=== PATIENT | male | born 1945 ===

== ENCOUNTER 2022-04-03 12:14 | Day surgery (SDC) | payer BC, OTHER ==
[2022-03-29 11:18] LABS: SARS-CoV-2 Antigen Rapid Res Negative (Negative)
[2022-04-03] MEDS ORDERED: CYCLOPENTOLATE 1% OPTH 2 ML ONE (12:42)
[2022-04-03] MEDS ORDERED: LIDOCAINE HCL/PF 3.5% OPTH GEL ONE (12:42)
[2022-04-03] MEDS ORDERED: NA CHLORIDE 0.9% 500 ML ONE (12:42)
[2022-04-03] MEDS ORDERED: PHENYLEPHRINE 10% OPTH 5ML OPTH ONE (13:07)
[2022-04-03] MEDS ORDERED: MIDAZOLAM HCL 2 MG/2 ML INJ ONE (13:56)
[2022-04-03] MEDS ORDERED: FENTANYL CITR 100 MCG/2 ML ONE (13:56)
[2022-04-03] MEDS ORDERED: BSS OPTHALMIC SOL 15 ML OPTH ONE (14:22)
[2022-04-03] MEDS ORDERED: TETRACAINE HCL 0.5% 4ML OPTH ONE (14:22)
[2022-04-03] MEDS ORDERED: BALANCED SALT IRRIG PLAIN 500 ML IRR ONE (14:22)
[2022-04-03] MEDS ORDERED: EPINEPHRINE/PF 1 MG/ML AMP ONE (14:22)
[2022-04-03] MEDS ORDERED: MOXIFLOXACIN HCL 0.5% 3ML OPTH OPTH ONE (14:26)
[2022-04-03] MEDS ORDERED: LIDOCAINE 1% MPF 2 ML AMPULE ONE (14:39)
[2022-04-03] MEDS ORDERED: TRYPAN BLUE 0.5 ML SYR OPTH ONE (14:54)
[2022-04-03] MEDS ORDERED: LIDOCAINE HCL/PF 3.5% OPTH GEL OPTH ONE (14:57)
[2022-04-03] MEDS ORDERED: POVIDONE-IODINE 5% EYE DROPS ONE (14:58)
[2022-04-03] MEDS ORDERED: TIMOLOL MALEATE 0.5% OPTH 5 ML BTL LEFT EYE ONE (16:26)
[2022-04-03 16:54] VITALS: BP 148/79; TEMP 98.1; O2SAT 99
--- NOTE | 2022-04-04 03:57 | OP ---
Date of Procedure: 04/03/2022 Surgeon: Caty Mack MD Anesthesiologist: 1. May Waters CRNA. 2. Chester Enriquez MD. Preoperative Diagnoses: Mature cataract, left eye, and Pseudoexfoliation, left eye. Operation Performed: Phacoemulsification with intraocular lens implant, complex with the use of tryp an blue. Anesthesia: Per cataract surgery. Complications: None. Description Of The Procedure: The patient was prepped with Betadine in day surgery. A drape was brennan andrea over the left eye. A lid speculum was placed in the left eye. A conjunctival incision was made in the inferior nasal quadrant with Alfa scissors. A 1:1 mixture of 2% Xylocaine and 0.25% bupiv acaine was placed around the globe. Approximately 5 mL were used. A [place] balloon was placed on the eye for approximately 5 minutes. The patient was then transferred to the operative room where they were prepped and draped in the usual sterile fashion for ophthalmic surgery. A lid speculum was plac ed in the left eye. There was poor red reflex and a decision was made to use trypan blue. Paracente sis sites were made superiorly and inferiorly in the limbal cornea. Air was placed in the anterior c hamber. This was followed by trypan blue and then balanced salt solution was used to rinse out the t rypan blue from the eye. Viscoat was placed in the eye. The temporal conjunctiva was cut at the medina bus with Alfa scissors. A crescent blade was used to create a tunnel incision in the temporal co rnea. A keratome was used to enter the anterior chamber. Provisc was placed in the eye. A 360 degr ee capsulotomy was performed with a cystitome. The lens was hydrated with balanced salt solution and moved freely. The lens was removed in a stop and chop fashion. 51.95 CDE was required. Irrigation and aspiration were used to remove residual cortex. Provisc was placed in the eye and a MA60AC plus 19.5 in the sulcus with anterior capsular capture diopter lens was placed in the capsular bag withou t complications. Irrigation and aspiration were used to remove residual Viscoat. The paracentesis s ites were hydrated with balanced salt solution. The wound and paracentesis sites were inspected and found to be watertight. Intracameral Vigamox 0.07 cc was injected at the end of the procedure. The eye was irrigated with balanced salt solution. The eye was patched with a soft cotton patch and Williamson metal shield and the patient was returned to day surgery in good condition. Comments: Extra Viscoat was used and Trypan blue was used. Discharge Instructions: Mr. Amaya is discharged to home in good condition. He is to follow up with Dr. Mack in the morning. CIRA/ELIZABETH Voice ID: [id number] Report ID: [id number]
== END 2022-04-03 16:50 | disposition home or self-care (01) ==
LOC: OR 12:14
PROVIDERS: ADMIT Ophthalmology Retina Specialist; ATTEND Ophthalmology Retina Specialist
PROC: 08RK3JZ Replacement of Left Lens with Synthetic Substitute, Percutaneous Approach (ICD-10-PCS; principal; 2022-04-03 14:00)
DX: H25.812 Combined forms of age-related cataract, left eye (principal); E11.319 Type 2 diabetes mellitus with unspecified diabetic retinopathy without macular edema; I10 Essential (primary) hypertension; I50.9 Heart failure, unspecified; I27.20 Pulmonary hypertension, unspecified; Z20.822 Contact with and (suspected) exposure to COVID-19
CPT/HCPCS: 36415; 87811; 66982; J0171; J2250; J3010; J7040